=== PATIENT | female | born 1985 | race Hispanic/Latino ===

== ENCOUNTER 2019-01-27 12:57 | Emergency (ER) | payer MEDICAID, OTHER | END 2019-01-27 13:14 | disposition home or self-care (01) | LOC: EDH 12:57 | DX: R21 Rash and other nonspecific skin eruption (principal); L29.9 Pruritus, unspecified; Z98.51 Tubal ligation status | CPT/HCPCS: 99281 ==

== ENCOUNTER 2022-06-17 12:00 | Emergency (ER) | payer OTHER ==
[~2022-06-17] VITALS: Ht 157.5 cm; Wt 90.7 kg
[2022-06-17 12:15] VITALS: BP 110/73
== END 2022-06-17 13:20 | disposition left against medical advice (07) ==
LOC: EDH 12:00
DX: H57.89 Other specified disorders of eye and adnexa (principal); Z53.21 Procedure and treatment not carried out due to patient leaving prior to being seen by health care provider